=== PATIENT | male | born 1955 | race Caucasian/White ===

== ENCOUNTER 2023-12-02 08:59 | Day surgery (SDC) | payer MEDICARE, OTHER ==
--- NOTE | 2023-12-02 08:35 | HP ---
DATE OF SURGERY: 12/02/2023 HISTORY OF PRESENT ILLNESS: The patient is a 68-year-old with persistent ruptured cyst site for a while and after draining did have some more bloody material since then. PAST MEDICAL HISTORY: Anxiety, hypertension. PAST SURGICAL HISTORY: T&A. Bilateral wrist surgery. Left knee scope x2. MEDICATIONS: Aspirin, Coreg, Catapres,Cozaar, Flomax. ALLERGIES: NKDA. FAMILY HISTORY: Uterine cancer, lymphoma. SOCIAL HISTORY: No smoking. Occasional alcohol use. REVIEW OF SYSTEMS: Twelve systems reviewed. No chest pain or palpitations. Other systems negative or noncontributory as above and per admission assessment. PHYSICAL EXAMINATION: Height 6 feet 2 inches. BMI 34.67. GENERAL: No acute distress. HEENT: Sclerae nonicteric. EOMI. Oral mucous membranes moist. NECK: No JVD. CHEST: Equal excursion, nonlabored breathing. CVS: Regular rate and rhythm. ABDOMEN: Soft. EXTREMITIES: No cyanosis or edema. Left thigh ruptured cyst site. NEURO: Alert, oriented, moving extremities symmetrically. PSYCH: Appropriate mood and affect. SKIN: Dry. IMPRESSION: Persistent ruptured cyst site left posterior thigh. I recommend excision. Risks of bleeding or infection possibly requiring packing, risk of hematoma or seroma formation, risk of aches, pains, burning or numbness. General risk of anesthesia, deep venous thrombosis, pulmonary embolism, or pneumonia but not limited to. Will proceed with excision of ruptured cyst site left posterior thigh as an outpatient in the OR. Otherwise, continue medication for benign prostatic hypertrophy and hypertension.
[2023-12-02] MEDS ORDERED: Sensorcaine 0.25% 10 ML ONE (09:25)
[2023-12-02] MEDS ORDERED: CEFAZOLIN 2 GM-D5W BAG** 2 GM/50 ML ML IV ONE (09:28)
[2023-12-02] MEDS ORDERED: Lactated Ringers 1,000 ML IV ONE ×2 (09:28→12:01)
[2023-12-02] MEDS: CEFAZOLIN 2 GM-D5W BAG** 2 GM/50 ML ML IV SCH (09:31)
[2023-12-02] MEDS: Lactated Ringers 1,000 ML IV SCH (09:31)
[2023-12-02] MEDS ORDERED: DIPRIVAN 200 MG/20 ML IV ONE (10:07)
[2023-12-02] MEDS ORDERED: Quelicin Fliptop 200 MG/10 ML ONE (10:11)
[2023-12-02] MEDS ORDERED: Decadron 4 MG INJ ONE (10:11)
[2023-12-02] MEDS ORDERED: Zofran 4 MG/2 ML VIAL ONE (10:11)
[2023-12-02] MEDS ORDERED: Ephedrine Sulfate 50 MG/ML ONE (11:36)
[2023-12-02 13:24] VITALS: RESP 16; TEMP 96.7
[2023-12-02 13:36] VITALS: BP 150/95; PULSE 61; O2SAT 95
--- NOTE | 2023-12-03 08:38 | OP ---
SURGERY DATE/TIME: 12/02/2023 1111 PREOPERATIVE DIAGNOSIS: Persistent posterior thigh cyst on the left. POSTOPERATIVE DIAGNOSIS: Ruptured cyst site on the left posterior thigh. PROCEDURE: Excisional biopsy of ruptured thigh cyst site left posterior thigh with intermediate closure with local advancement flaps. SURGEON: Mau Fernandez M.D. ANESTHESIA: General. QUANTITATIVE BLOOD LOSS: Minimal. INDICATIONS: As noted above, consent obtained. The site was marked in the preoperative holding area. DESCRIPTION OF PROCEDURE AND FINDINGS: He is taken to the operating room. General anesthesia introduced. They elected to put him in a prone position, prepped and draped in usual sterile fashion. After official time out and no disagreement with planned procedure, marking out around where the more central indurated area seemed to be more cyst site. Dissection was carried down to normal appearing subcutaneous tissue underneath this area measuring about 3 cm in size with margins and passed off for pathology. There was some very poor quality portions of the skin on either side where there had been some secondary inflammation. It was necessary go out a little bit wider on this area. The flaps were undermined on either side. The flaps were brought back to the midline, the area is about 4 to 4.5 sq/cm. They were advanced back to the midline with interrupted 3-0 and 2-0 Vicryl in the deep and superficial subcu. The skin closed with 4-0 Vicryl in running subcuticular fashion. It should be noted that this batch of needles kept coming off requiring using a couple extra sutures. I was able to close the skin with 4-0 Vicryl, some interrupted 3-0 Prolene in interrupted and vertical mattress fashion was used to reinforce the area as it was a little snug in that location. Steri-Strips and sterile dressing applied. 0.25% Marcaine local had been injected around the area. Findings discussed with his out in the waiting area. He was transferred to the recovery room in stable condition. There was initial issue with computer not signing on to the prescription electronically but I corrected and able to be signed.
== END 2023-12-02 13:45 | disposition home or self-care (01) ==
LOC: SDC 08:59
PROVIDERS: ATTEND Surgery
DX: L72.0 Epidermal cyst (principal)
CPT/HCPCS: 93005; J0330; J0690; J1100; J2405; J2704

== ENCOUNTER 2023-12-17 06:31 | Day surgery (SDC) | payer MEDICARE, OTHER ==
[2023-12-17] MEDS: Lactated Ringers 1,000 ML IV SCH (07:04)
[2023-12-17] MEDS ORDERED: DIPRIVAN 200 MG/20 ML IV ONE ×3 (07:09→08:25)
[2023-12-17] MEDS ORDERED: Ketamine HCl 50 MG/ML ONE ×3 (07:11→07:26)
[2023-12-17 08:48] VITALS: TEMP 97.6
[2023-12-17 08:49] VITALS: RESP 16
[2023-12-17 08:55] VITALS: BP 141/81; PULSE 78; O2SAT 94
--- NOTE | 2023-12-17 18:31 | OP ---
SURGERY DATE/TIME: 12/17/2023 [id number] PREOPERATIVE DIAGNOSIS: Screening exam. POSTOPERATIVE DIAGNOSIS: A 2.5 x 1.7 cm sessile polyp in the ascending colon. PROCEDURE: Colonoscopy with cold forceps biopsies. SURGEON: Jhonathan Yost MD ANESTHESIA: Medications given by the anesthesia department. INDICATIONS: The patient is a 68-year-old white male patient presenting now for his first screening examination. He was appraised the risks of the procedure including risk of perforation, phlebitis, untoward reaction to medication, bleeding, and missed lesions. The patient verbalized his understanding and desired to have the procedure performed. DESCRIPTION OF PROCEDURE AND FINDINGS: The patient was given medications by the anesthesia department. He had continuous pulse oximetry, ECG monitoring, and intermittent blood pressure monitoring during the examination. He was placed in left lateral decubitus position. Digital rectal exam was performed and revealed normal anal sphincter tone and no masses. The flexible Olympus videocolonoscope was used to intubate the rectum. A view of the colon was developed sequentially to the cecum where it was noted in the area approximately opposite the ileocecal valve an approximate 2.0 x 1.7 cm sessile lesion. This was destroyed using multiple passes of the cold forceps biopsy instrument. No other mucosal lesions were encountered in the colon. The scope was removed from the patient. He tolerated the procedure well and was sent back to outpatient recovery in good condition. The prep was noted to be fair to good.
== END 2023-12-17 09:05 | disposition home or self-care (01) ==
LOC: SDC 06:31
PROVIDERS: ATTEND Family Medicine
DX: Z12.11 Encounter for screening for malignant neoplasm of colon (principal); D12.2 Benign neoplasm of ascending colon
CPT/HCPCS: J2704